=== PATIENT | female | born 1955 | race Caucasian/White ===

== ENCOUNTER 2024-07-11 20:45 | Emergency (ER) | payer OTHER ==
[2024-07-11 20:50] VITALS: BP 139/89; PULSE 94; RESP 18; TEMP 98; BMI 23.8
[2024-07-11] MEDS ORDERED: DIPHTH,PERTUSS(ACELL),TET 0.5 ML DISP.SYRIN IM ONE (21:33)
[2024-07-11] MEDS: DIPHTH,PERTUSS(ACELL),TET 0.5 ML DISP.SYRIN IM ONE (22:01)
== END 2024-07-11 22:09 | disposition home or self-care (01) ==
LOC: JERFT 20:45 → JER 20:45 → JERFT 22:09
PROC: 0XQSXZZ Repair Right Ring Finger, External Approach (ICD-10-PCS; principal; 2024-07-11)
PROC: 3E0234Z Introduction of Serum, Toxoid and Vaccine into Muscle, Percutaneous Approach (ICD-10-PCS; 2024-07-11)
DX: S61.214A Laceration without foreign body of right ring finger without damage to nail, initial encounter (principal); W01.110A Fall on same level from slipping, tripping and stumbling with subsequent striking against sharp glass, initial encounter; Z23 Encounter for immunization
CPT/HCPCS: 12001-25; 90471; 90715; 99284-25